=== PATIENT | male | born 1985 | race Caucasian/White ===

== ENCOUNTER 2016-07-09 21:33 | Inpatient (IN) | payer OTHER ==
--- NOTE | ~2016-07-09 | HP ---
Unit #: [id number] #: [id number] Patient: TOLU MUNOZ [id number] [place] [address] [id number] MR#: [id number] NAME: TOLU MUNOZ. ROOM: P202 Age: 31 Sex: M Admission Date: 07/09/2016 : 1985 Attending Physician: Judson Zelaya M.D. Admitting Physician: Judson Zelaya M.D. Primary Care Physician: James Goff Aprn HISTORY AND PHYSICAL HISTORY OF PRESENT ILLNESS Tolu is a 31 year old admitted to [address] [place] [address] with increased paranoia. PAST MEDICAL HISTORY 1. Morbid obesity. 2. History of kidney stones. 3. History of illicit substance use. 4. History of withdrawal seizures. 5. GERD. 6. Hyperlipidemia. 7. High blood pressure. PAST SURGICAL HISTORY Nothing reported. ALLERGIES Phenergan. SOCIAL HISTORY Smokes 2 packs per day. Drinks alcohol and uses marijuana. FAMILY HISTORY Medically noncontributory. REVIEW OF SYSTEMS CONSTITUTIONAL: No fever or chills. HEENT: Denies any sore throat, ear pain or runny nose. CARDIOVASCULAR: Denies chest pain, irregular heart rhythm or palpitations. CHEST: Denies shortness of breath or cough. No hemoptysis. GASTROINTESTINAL: Denies nausea, vomiting, diarrhea or chronic constipation. ENDOCRINE: Denies history of increased thirst or urination. No recent significant weight loss or gain. GENITOURINARY: Denies dysuria, frequency, or hematuria. SKIN: Denies any rashes. HEMATOLOGIC: Denies history of increased bleeding or bruising. MUSCULOSKELETAL: Denies any hot, swollen joints. No generalized muscle pain. NEUROLOGIC: Denies problems with vision or speech. No frequent, severe headaches. No numbness, tingling or weakness in any extremities. Denies loss of bladder or bowel control. CURRENT MEDICATIONS Unit #: [id number] #: [id number] Patient: TOLU MUNOZ 1. Detox protocol. 2. Zoloft 100 mg daily. 3. Geodon 20 mg b.i.d. 4. Protonix 40 mg daily. 5. Zestril 10 mg daily. 6. Zanaflex 4 mg t.i.d. 7. Neurontin 600 mg q.i.d. PHYSICAL EXAMINATION GENERAL: Alert, well-nourished, in no apparent distress. VITAL SIGNS: Blood pressure 122/84, heart rate 80, respirations 16, temperature 98.6. WEIGHT: 256. HEIGHT: 5 feet 9 inches. SKIN: Warm and dry without rash or lesion. HEENT: Normocephalic. TMs not viewed. Oral and nasal passages clear. Conjunctivae clear. PERRLA. EOMs intact. NECK: Supple without lymphadenopathy or thyromegaly. HEART: Regular rate and rhythm without murmur. LUNGS: Clear. ABDOMEN: Soft, nontender. : Not done. EXTREMITIES: No evidence of cyanosis, clubbing or edema. Moves all without focal deficit. NEUROLOGICAL: Grossly within normal limits. Cranial Nerves: II: Visual collins are intact. III, IV AND : Extraocular movements are intact. Pupils are equal, round and reactive to light. V: Facial sensation is grossly normal. VII: Facial movements and expression are normal. VIII: Auditory acuity grossly intact. IX, X: Uvula is midline. Phonation is normal. XI: Patient shrugs shoulders and turns head normally. XII: Tongue protrudes in the midline. Sensory and Motor Function: Sensory and motor sensation is grossly normal. Motor: moves all extremities well. Coordination: Gait is normal. Deep Tendon Reflexes: Intact. IMPRESSION Psychiatric admission. RECOMMENDATIONS PSYCHIATRIC: Per psychiatrist. MEDICAL: See no contraindications to participate in facility's activities. MEDICAL PROGNOSIS Good. MEDICAL CONDITION Stable. Dictated by... Areli Wiseman P.A.-C. for Marlee Herrera/gabi Unit #: [id number] #: [id number] Patient: TOLU MUNOZ TD: 07/10/2016 18:09 JOB #: [id number] HISTORY AND PHYSICAL Page 1 of 1 X Areli Wiseman X HISTORY AND PHYSICAL
--- NOTE | ~2016-07-09 | PN ---
Unit #: [id number] #: [id number] Patient: TOLU MUNOZ [id number] [facility] [address] [place] [address] [id number] I MR#: [id number] NAME: TOLU MUNOZ. ROOM: P202 Age: 31 Sex: M Admission Date: 07/09/2016 : 1985 Attending Physician: Judson Zelaya M.D. Admitting Physician: Judson Zelaya M.D. Primary Care Physician: Laureen Jung PROGRESS NOTES DATE 07/11/2016 DISCUSSION The patient seems brighter today and is agreeable with switch to Geodon. He is brighter and now is reporting a wish to go to "[facility]" for residential chemical dependence treatment. Dictated by... Judson Zelaya M.D. CB/rosa TD: 07/11/2016 15:04 JOB #: [id number] LOS PROGRESS NOTES Page 1 of 1 X Judson Zelaya MD X PROGRESS NOTE
--- NOTE | ~2016-07-09 | DS ---
Unit #: [id number] #: [id number] Patient: TOLU MUNOZ [id number] [place] [address] [id number] MR#: [id number] NAME: TOLU MUNOZ. ROOM: P202 Age: 31 Sex: M Admission Date: 07/09/2016 : 1985 Discharge Date: 07/15/2016 Attending Physician: Judson Zelaya M.D. Primary Care Physician: James Goff Aprn DISCHARGE SUMMARY REASON FOR ADMISSION The patient is a 31-year-old white male with a history of schizoaffective disorder as well as abuse of opioids and sedative hypnotics. HOSPITAL COURSE The patient was admitted to the [address] [place] [address] unit and placed on routine detoxification protocol for opioids and sedative hypnotics. He was continued on previously prescribed gabapentin and was also continued on Zanaflex, lisinopril, Prilosec, Zoloft, and Geodon. The patient's stay in the hospital was a fairly uneventful one. His detox went smoothly and he reported significant reduction in psychotic symptoms as he complied with Geodon. He stated he wished to go to "[facility]," but by the date of discharge on 07/15/2016, he remained "on the waiting list" for that facility. He was agreeable with plan for followup in the intensive outpatient program provided by this facility and discharge was ordered. FINAL DIAGNOSES Schizoaffective disorder, sedative hypnotic use disorder, opioid use disorder, hypertension, and gastroesophageal reflux disease. DISPOSITION ON DISCHARGE The patient is discharged on the following medications; gabapentin 600 mg q.i.d. for chronic pain, Zanaflex 4 mg t.i.d. p.r.n. muscle stiffness; lisinopril 10 mg daily for hypertension; Prilosec 20 mg daily for GERD; Geodon 20 mg b.i.d. for psychosis; and Zoloft 100 mg daily for depression. DISCHARGE INSTRUCTIONS No dietary or physical restrictions were placed on the patient at the time of discharge. FOLLOWUP Followup will take place in the intensive outpatient program provided by this facility and through the auspices of [facility]. PROGNOSIS The patient's prognosis is considered fair. Dictated by... Judson Zelaya M.D. Unit #: [id number] #: [id number] Patient: TOLU MUNOZ CB/benjamin TD: 07/15/2016 14:34 JOB #: [id number] DISCHARGE SUMMARY Page 1 of 1 X Judson Zelaya MD X DISCHARGE SUMMARY
--- NOTE | ~2016-07-09 | PN ---
Unit #: [id number] #: [id number] Patient: TOLU MUNOZ [id number] [facility] [address] [place] [address] [id number] MR#: [id number] NAME: TOLU MUNOZ. ROOM: P202 Age: 31 Sex: M Admission Date: 07/09/2016 : 1985 Attending Physician: Judson Zelaya M.D. Admitting Physician: Judson Zelaya M.D. Primary Care Physician: Laureen Jung PROGRESS NOTES DATE 07/12/2016 DISCUSSION The patient is in slightly brighter spirits today but continues to express interest in residential chemical dependence treatment, and it is our hope that this can be arranged in the next few days. Otherwise he offers no new complaints and is tolerating the switch to Geodon without complaint. Dictated by... Judson Zelaya M.D. CB/bzkashmir TD: 07/12/2016 13:03 JOB #: [id number] LOS PROGRESS NOTES Page 1 of 1 X Judson Zelaya MD X PROGRESS NOTE
--- NOTE | ~2016-07-09 | PN ---
Unit #: [id number] #: [id number] Patient: TOLU MUNOZ [id number] [facility] [address] [place] [address] [id number] MR#: [id number] NAME: TOLU MUNOZ. ROOM: P202 Age: 31 Sex: M Admission Date: 07/09/2016 : 1985 Attending Physician: Judson Zelaya M.D. Admitting Physician: Judson Zelaya M.D. Primary Care Physician: Laureen Jung PROGRESS NOTES DATE 07/13/2016 DISCUSSION The patient offers no new complaints today. He is generally pleasant and cooperative in his interactions with peers and staff. We continue to await word regarding possible placement at [facility]. Dictated by... Judson Zelaya M.D. CB/to TD: 07/13/2016 15:30 JOB #: [id number] LOS PROGRESS NOTES Page 1 of 1 X Judson Zelaya MD X PROGRESS NOTE
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
--- NOTE | ~2016-07-09 | PN ---
Unit #: [id number] #: [id number] Patient: TOLU MUNOZ [id number] [facility] [address] [place] [address] [id number] MR#: [id number] NAME: TOLU MUNOZ. ROOM: P202 Age: 31 Sex: M Admission Date: 07/09/2016 : 1985 Attending Physician: Judson Zelaya M.D. Admitting Physician: Judson Zelaya M.D. Primary Care Physician: Laureen Jung PROGRESS NOTES DATE 07/14/2016 DISCUSSION The patient exhibits little in the way of signs or symptoms of withdrawal and seems to be tolerating Geodon without complaint. He remains quite apprehensive regarding his ongoing substance use, stating "I can't do it on my own." He continues to request placement at a resident treatment facility and I will see that the patient's social media strategist sees him today regarding progress on that account. Dictated by... Marlee Hoang TD: 07/14/2016 13:31 JOB #: [id number] LOS PROGRESS NOTES Page 1 of 1 X Judson Zelaya MD X PROGRESS NOTE
[~2016-07-09 21:33] MED LIST: AMOXICILLIN500 M1 PO; CARAFATE PO; CLONAZEPAM2 MG PO; FLEXERIL10 M1 PO; FLOMAX0.4 M1 PO; IBUPROFEN PO; KLONOPIN PO; KLONOPIN1 MG PO; LORTAB 10-5001 EACH PO; NAPROSYN500 MG PO; NO MEDICATIONS; NORCO1 TAB 10/3 PO; PREDNISONE PO; VOLTAREN75 MG PO; ZOLOFT PO
[2016-07-10 09:48] LABS: BASOPHIL% 0.2 % (0-2.5); EOSINOPHIL# 0.1 X10e3 (0-0.7); EOSINOPHIL% 1.6 % (0.0-7.0); HEMOGLOBIN 15.6 gm/dL (13.0-16.0); LYMPHOCYTE# 3.3 X10e3 (1.0-3.5); LYMPHOCYTE% 42.9 % (17.0-45.0); MEAN CORPUSCULAR HEMOGLOBIN 30.6 PG (28-34); MEAN PLATELET VOLUME 8.3 FL (6.5-11.5); MONOCYTE# 0.6 X10e3 (0-1.0); MONOCYTE% 7.5 % (3.0-12.0); NEUTROPHIL# 3.6 X10e3 (1.5-7.1); NEUTROPHIL% 47.8 % (40-75); PLATELET COUNT 245 X10e3 (140-420); RED BLOOD COUNT 5.11 X10e (3.90-5.60); RED CELL DISTRIBUTION WIDTH 13.3 % (11.0-15.5); WHITE BLOOD COUNT 7.6 X10e3 (4.0-10.5)
[2016-07-10 09:54] LABS: DIFF IND NO
[2016-07-10 10:31] LABS: ALBUMIN SERUM 4.2 g/dL (3.5-5.0); BILIRUBIN,TOTAL 0.7 mg/dL (0.2-2.0); CALCIUM SERUM 9.6 mg/dL (8.4-10.2); CREATININE SERUM 0.5 mg/dL (0.6-1.4); GLOM FILT RATE Estimated 144.5 mL/min (>60); POTASSIUM 4.5 mmol/L (3.5-5.1)
[2016-07-12 13:42] LABS: URINE APPEARANCE CLEAR; URINE BILIRUBIN NEG (NEG); URINE BLOOD NEG (NEG); URINE COLOR YELLOW; URINE GLUCOSE NEG (NEG); URINE KETONE NEG (NEG); URINE LEUKOCYTE ESTERASE NEG (NEG); URINE NITRATE NEG (NEG); URINE PH 5.5 (5-8); URINE PROTEIN NEG (NEG); URINE UROBILINOGEN 0.2 MG/DL (NEG)
[2016-07-12 13:59] LABS: AMPHETAMINE NEG (NEG); BARBITURATES NEG (NEG); BENZODIAZEPINES POS (NEG); COCAINE NEG (NEG); MARIJUANA NEG (NEG); OPIATES NEG (NEG); TRICYCLIC ANTIDEPRESSANTS NEG (NEG); U METHADONE NEG (NEG)
== END 2016-07-15 16:10 | DRG 885 ==
LOC: P2S 21:33
PROVIDERS: Specialist
PROC: HZ2ZZZZ Detoxification Services for Substance Abuse Treatment (ICD-10-PCS; principal; 2016-07-09)
DX: F25.9 Schizoaffective disorder, unspecified (principal); F11.20 Opioid dependence, uncomplicated; I10 Essential (primary) hypertension; F13.20 Sedative, hypnotic or anxiolytic dependence, uncomplicated; K21.9 Gastro-esophageal reflux disease without esophagitis; G89.29 Other chronic pain; E66.01 Morbid (severe) obesity due to excess calories; Z87.442 Personal history of urinary calculi; E78.5 Hyperlipidemia, unspecified; F17.210 Nicotine dependence, cigarettes, uncomplicated
CPT/HCPCS: 80053; 80307; 81003; 85025; 86592